=== PATIENT | female | born 1955 | race Caucasian/White ===

== ENCOUNTER 2016-06-17 09:14 | Day surgery (SDC) | payer OTHER ==
[~2016-06-17] VITALS: Ht 154.9 cm; Wt 44.9 kg
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
[~2016-06-17 09:14] MED LIST: ACET325T51 PO; ARNI120T TP; ASCO1500 PO; CALC-975 PO; CARI350T PO; CHOL10008 PO; ESTR1PAT13 TD; HYDR-3825 PO; HYDR-656 PO; IBUP200C PO; KLO2T PO; LAMO200T PO; LANS30CA14 PO; Lactated Ringer's 1,000 ML IV ONE; MAGN400C PO; MUPI22OI2 TOP; ONDA4TAB6 PO; QUET100T PO; RIZA10TA26 PO; ROPI1TAB2 PO; TIZA2TAB3 PO
[2016-06-17] MEDS ORDERED: fentaNYL-PF 50 mCg/mL 2 mL Inj ONE (09:15)
[2016-06-17] MEDS ORDERED: Ketamine 10 mg/mL 20 mL Inj ONE (09:15)
[2016-06-17] MEDS ORDERED: Lactated Ringer's 1,000 ML IV ONE (09:20)
[2016-06-17 09:37] VITALS: BP 120/71; PULSE 67; RESP 16; O2SAT 100
[2016-06-17] MEDS ORDERED: ASPI325T32 PO (09:51)
[2016-06-17] MEDS ORDERED: Lactated Ringer's 1,000 ML IV SCH (10:17)
[2016-06-17] MEDS ORDERED: Ondansetron 2 mg/mL 2 mL Inj IVPUSH PRN (10:20)
[2016-06-17] MEDS ORDERED: MetoCLOpramide 5 mg/mL 2 mL Inj IVPUSH PRN (10:20)
[2016-06-17 11:35] VITALS: BP 124/71; PULSE 77; RESP 16; O2SAT 100
[2016-06-17 11:45] VITALS: BP 116/69; PULSE 66; RESP 16; O2SAT 99
[2016-06-17 11:54] VITALS: BP 119/79; PULSE 66; RESP 16; O2SAT 97
--- NOTE | 2016-06-17 12:11 | ENDO ---
[address] [address] ENDOSCOPY PROCEDURE PATIENT: LUIGI PRICE : 1955 MR#: [id number] ADMIT: 06/17/2016 JOB ID: [id number] PREOPERATIVE DIAGNOSES: 1. History of Shin pouch. 2. Stool impaction in Kock pouch. POSTOPERATIVE DIAGNOSES: 1. History of Shin pouch. 2. Stool impaction in Shin pouch. PROCEDURE: 1. Endoscopic evaluation of Shin pouch. 2. Irrigation of impacted stool. SURGEON: Fabricio Loja MD. INDICATIONS: A 60-year-old female who approximately 20 years ago in [facility] had a Shin pouch created. She has had intermittent episodes where she is seeing pieces of crystalized stool come out through the small stoma causing pain and occasional bleeding. She has had previous contrast studies and she was told that contrast has remained within her pouch. After discussing options with the patient, it was elected to proceed with endoscopic evaluation of her Shin with attempts to break up presumed inspissated stool and followed by a Gastrografin study of the pouch. FINDINGS: This pouch was actually easily endoscoped. Within the pouch there was adherent stool with what looked like residual barium. I irrigated it with saline and sterile water, and then a Gastrografin study was performed, again showing some residual stool and no evidence of extravasation. DESCRIPTION OF PROCEDURE: Dr. Darian Quezada from anesthesia provided sedation. After she was successfully sedated down in the fluoroscopy suite in Radiology, I initially attempted to place a GIF-H180J video endoscope through the stoma site in the right lower quadrant. At that point, the scope seemed too big and so I switched to a GIF-XP190 scope. I was easily able to access the pouch with the findings of a large amount of residual stool. Because that scope did not have an irrigation port, I then withdrew it and tried again with the GIF-H180J scope, which easily then went into the pouch and then with saline and sterile water, irrigated and aspirated and broke up the stool impaction. Dr. Emerald Jones then performed a Gastrografin study. See her dictation for details. The patient tolerated the procedure well. She was then returned to the endoscopy recovery area. RIZWAN
--- NOTE | 2016-06-17 14:03 | PCM.ANEP1 ---
Post Anesthesia Phase 1 PACU Phase 1 Assessment Vital Signs Vital Signs Date Time Temp Pulse Resp B/P Pulse Ox O2 Delivery O2 Flow Rate FiO2 06/17/16 11:54 66 16 119/79 97 Room Air 06/17/16 11:45 66 16 116/69 99 Room Air 06/17/16 11:35 77 16 124/71 100 Room Air 06/17/16 09:37 36.8 67 16 120/71 100 Room Air Anesthetic Administered: MAC Level of Alertness: Awake, talking CORREA's with Equal Strength: Yes Pain: No Nausea or Vomiting: No Oxygen Delivery: Nasal Cannula Dermatome Level: Full Sensation Darian Quezada MD Jun 17, 2016 14:03
--- NOTE | 2016-06-17 14:04 | PCM.ANEP2 ---
Post Anesthesia Evaluation ASA/CMS Post Anesthesia VS in Patient's Normal Range?: Yes Resp Stable; Airway Patent?: Yes CV Function & Hydration Stable: Yes Mental Status Recovered?: Yes Pain control Satisfactory?: Yes N/V Control Satisfactory?: Yes Darian Quezada MD Jun 17, 2016 14:04
--- NOTE | 2016-06-17 15:06 | DRSVH ---
PROCEDURE: X-RAY SMALL BOWEL GASTROGRAPHIN STUDY ([id number]) INDICATIONS: SHIN POUCH STONES COMPARISON: None. FINDINGS: KUB: Preprocedural co founder and chairman film demonstrates a normal bowel gas pattern. No suspicious abdominal calc ifications. Visualized solid organ contours appear normal. No suspicious bony abnormalities. Small bowel: Gastrografin was administered through Patel catheter into the patient's anterior ostomy site. There was contrast opacification within the patient's surgical pouch. IMPRESSION: Contrast opacification of Shin pouch. Dictated by: Emerald Jones M.D. on 06/17/2016 at 15:03 Approved by: Emerald Jones M.D. on 06/17/2016 at 15:03
== END 2016-06-17 23:59 | disposition home or self-care (01) ==
LOC: END 09:14
PROVIDERS: ATTEND Surgery
DX: K94.19 Other complications of enterostomy (principal); K56.41 Fecal impaction; Z90.710 Acquired absence of both cervix and uterus
CPT/HCPCS: 44385; 74250; J2250; Q9963

== ENCOUNTER → 2017-01-31 | Day surgery (SDC) | payer OTHER ==
[~2017-01-31] VITALS: Ht 154.9 cm; Wt 49.0 kg
[~2017-01-31] MED LIST changes: -ACET325T51 PO; +ASPI325T32 PO; -IBUP200C PO; -Lactated Ringer's 1,000 ML IV ONE; +MetoCLOpramide 5 mg/mL 2 mL Inj IVPUSH PRN; +Ondansetron 2 mg/mL 2 mL Inj IVPUSH PRN; +Propofol 10,000 mCg/mL 20 mL Inj ONE
[2017-01-31 13:23] VITALS: BP 113/71; PULSE 81; RESP 16; O2SAT 100
[2017-01-31] MEDS: Lactated Ringer's 1,000 ML IV SCH ×2 (14:11→15:18)
[2017-01-31 15:19] VITALS: BP 107/60; PULSE 73; RESP 14; O2SAT 98
[2017-01-31 15:29] VITALS: BP 101/62; PULSE 64; RESP 16; O2SAT 100
[2017-01-31 15:39] VITALS: BP 94/53; PULSE 79; RESP 16; O2SAT 99
[2017-01-31 15:49] VITALS: BP 107/59; PULSE 72; RESP 16; O2SAT 100
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
--- NOTE | 2017-01-31 17:20 | PCM.ANEP1 ---
Post Anesthesia PACU Phase 1 Assessment Vital Signs Vital Signs Date Time Temp Pulse Resp B/P Pulse Ox O2 Delivery O2 Flow Rate FiO2 01/31/17 15:49 72 16 107/59 100 Room Air 01/31/17 15:39 79 16 94/53 99 Room Air 01/31/17 15:29 64 16 101/62 100 Room Air 01/31/17 15:19 73 14 107/60 98 Room Air 01/31/17 13:23 81 16 113/71 100 Room Air Anesthetic Administered: GA, MAC Level of Alertness: Awake, talking CORREA's with Equal Strength: Yes Pain: No Nausea or Vomiting: No CV Function & Hydration Stable: Yes Airway Device: n/a Oxygen Delivery: Room Air Lungs: Clear to Auscultation, Normal Air Movement Dermatome Level: Full Sensation PACU Phase 2 Assessment Complications: No Follow up Care: N/A Patient Instructions Provided: N/A Yovanny Chen MD Jan 31, 2017 17:20
--- NOTE | 2017-01-31 21:40 | ENDO ---
[address] [address] ENDOSCOPY PROCEDURE PATIENT: LUIGI PRICE : 1955 MR#: [id number] ADMIT: 01/31/2017 JOB ID: [id number] DATE: 01/31/2017 PREPROCEDURE DIAGNOSIS: Retained foreign body in Kock pouch. POSTPROCEDURE DIAGNOSIS: Retained foreign body in Kock pouch. PROCEDURE PERFORMED: Endoscopy of ileostomy with Kock pouch with removal of retained foreign body x2. SURGEON: Isha Mckinley MD. ASSISTANTS: Luisito Dahl MD, R3. HISTORY OF PRESENT ILLNESS: This is a 61-year-old woman who has a history of a total proctocolectomy on whom a Kock pouch was created at [facility] in the . 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 She was seen by my partner, and he had recommended evaluation by a plastic surgeon for revision of the skin surrounding the outlet of the ostomy. She has also been performing self dilation with the tip of a [place] sump 30-Marshallese catheter. She was cutting this to a few centimeters in length and using it for dilation at home and, recently, she had advanced it too far and had lost it within the Kock pouch. She was still having stool output from the Kock pouch and she was stable without any abdominal pain. She was brought in for semi-urgent endoscopy for removal foreign body. DESCRIPTION OF PROCEDURE: The patient was brought to the procedure suite and placed in supine position. Moderate anesthesia care was performed. Lubrication was used at the site of the ileostomy. I began with the smallest endoscope, 5.6 mm in diameter, Olympus GIF [id number]. This was advanced into the Kock pouch, which appeared as a round cavity. There is a ball of stool within, the clear catheter which the patient had cut on two sides, and also a piece of black rubbery-looking material, which was also about the diameter of the pouch. The patient had not described a history of another piece of foreign material. I grasped the clear catheter with forceps and attempted to withdraw it, however, the outlet for the Kock pouch was too small. Therefore, an Olympus GIF H 180J standard endoscope was attempted to be inserted, however, was too large, 9.9 mm in diameter. Therefore, a 3rd endoscope, Olympus GIF H 160, 8.6 cm in diameter, was inserted, and this passed into the pouch. A snare was then used to grasp the catheter very close to a single end, and the foreign body was withdrawn. It was a clear piece of [place] sump tube, 30-Marshallese in size, similar to what the patient had described before the procedure. The endoscope was reinserted and the black rubber cap was identified, snared, and withdrawn as well. It had the appearance of a black rubber cap that was approximately the size of the [place] sump tubing, but was softer and more malleable. There were no other signs of form bodies within the pouch. The air was suctioned out of the pouch. The patient was taken to the post procedural area, and she tolerated the procedure well. ESTIMATED BLOOD LOSS: None. SPECIMENS: Two pieces of foreign material, as described above, were removed. They were not sent to the pathologist. COMPLICATIONS: None.
== END | disposition home or self-care (01) ==
LOC: END 11:46
PROVIDERS: ATTEND Surgery
DX: K94.19 Other complications of enterostomy (principal); R13.10 Dysphagia, unspecified; F41.8 Other specified anxiety disorders; F17.210 Nicotine dependence, cigarettes, uncomplicated; Z79.82 Long term (current) use of aspirin; Z90.49 Acquired absence of other specified parts of digestive tract
CPT/HCPCS: 44380; J2704; J7120